=== PATIENT | female | born 1940 | race Hispanic/Latino ===

== ENCOUNTER 2017-10-22 09:29 | Emergency (ER) | payer MEDICARE, OTHER ==
[~2017-10-22] VITALS: Ht 152.4 cm; Wt 68.0 kg
[~2017-10-22 09:29] MED LIST: [UNRECOGNIZED DRUG - REMARK]
[2017-10-22 11:08] LABS: CLARITY,URINE SL CLOUDY (CLEAR); COLOR,URINE YELLOW (YELLOW); LEUKOCYTE ESTERASE ,URINE 1+ (NEGATIVE); NITRITE,URINE NEGATIVE (NEGATIVE)
[2017-10-22 11:09] LABS: BILIRUBIN,URINE NEGATIVE (NEGATIVE); KETONES,URINE NEGATIVE (NEGATIVE); PROTEIN,URINE DIPSTICK NEGATIVE (NEGATIVE); URINE UROBILINOGEN 0.2 mg/dL (0.2 - 1)
[2017-10-22 11:30] LABS: EPITHELIAL CELLS,URINE FEW /LPF; TRANSITIONAL EPI CELLS,URINE RARE
== END 2017-10-22 12:48 | disposition left against medical advice (07) ==
LOC: ER 09:29
DX: R10.9 Unspecified abdominal pain (principal); G89.29 Other chronic pain
CPT/HCPCS: 81001; 87086; 99281